=== PATIENT | female | born 1970 | race African-American/Black ===

== ENCOUNTER 2021-04-26 17:20 | Emergency (ER) | payer OTHER ==
[~2021-04-26] VITALS: Ht 175.3 cm; Wt 130.0 kg
[2021-04-26] MEDS ORDERED: SODIUM CHLORIDE 0.9% 1,000 ML IV ONE (18:00)
[2021-04-26 18:13] LABS: BASOPHILS % 0.7 % (0.0-2.0); EOSINOPHILS % 0.8 % (0.0-5.0); HEMATOCRIT. 40.6 % (36.0-48.0); HEMOGLOBIN. 13.9 g/dL (12.0-16.0); LYMPHOCYTES % 32.9 % (20.0-50.0); MEAN CORPUSCULAR HEMOGLOBIN 31.1 pg (28.0-32.0); MEAN CORPUSCULAR VOLUME 90.9 fL (81.0-99.0); MEAN PLATELET VOLUME 7.7 fl (7.4-10.4); MONOCYTES % 8.1 % (2.0-8.0); NEUTROPHILS % 57.5 % (40.0-76.0); PLATELET 290 x1000/uL (130-400); RED BLOOD CELL COUNT 4.47 mill/uL (4.2-5.4); RED CELL DISTRIBUTION WIDTH 14.9 % (11.6-14.6)
[2021-04-26 18:20] LABS: CHLORIDE 102 mEq/L (98-107)
[2021-04-26 18:48] LABS: *AMPHETAMINES SCREEN URINE NEGATIVE (NEGATIVE); *BARBITURATES SCREEN URINE NEGATIVE (NEGATIVE); CANNABINOID URINE SCREEN NEGATIVE (NEGATIVE); OPIATES URINE SCREEN NEGATIVE (NEGATIVE); PHENCYCLIDINE URINE SCREEN NEGATIVE (NEGATIVE)
[2021-04-26 18:49] LABS: *BENZODIAZEPINES SCREEN URINE NEGATIVE (NEGATIVE); *COCAINE SCREEN URINE NEGATIVE (NEGATIVE); METHADONE URINE SCREEN NEGATIVE (NEGATIVE)
[2021-04-26] MEDS ORDERED: POTASSIUM CHLORIDE 20MEQ TABLET SR PO NR (19:00)
[2021-04-26] MEDS ORDERED: POTA20TA82 MT (21:25)
[2021-04-26 21:29] VITALS: BP 134/82
== END 2021-04-26 21:34 | disposition home or self-care (01) ==
LOC: ER 17:20
DX: R00.2 Palpitations (principal); E87.6 Hypokalemia; I10 Essential (primary) hypertension; E78.00 Pure hypercholesterolemia, unspecified; M19.90 Unspecified osteoarthritis, unspecified site; Z85.41 Personal history of malignant neoplasm of cervix uteri; Z86.718 Personal history of other venous thrombosis and embolism; Z98.890 Other specified postprocedural states; Z79.01 Long term (current) use of anticoagulants
CPT/HCPCS: 36415; 71045; 80053; 80305; 83880; 84484; 85025; 93005; 99285; J7030

== ENCOUNTER 2022-12-12 09:44 | Emergency (ER) | payer OTHER ==
[~2022-12-12] VITALS: Ht 175.3 cm; Wt 125.4 kg
[~2022-12-12 09:44] MED LIST: POTA-204 MT
[2022-12-12 10:00] VITALS: BP 124/82
[2022-12-12 10:35] LABS: BASOPHILS % 0.4 % (0.0-2.0); EOSINOPHILS % 0.3 % (0.0-5.0); HEMATOCRIT. 39.5 % (36.0-48.0); HEMOGLOBIN. 13.8 g/dL (12.0-16.0); LYMPHOCYTES % 27.3 % (20.0-50.0); MEAN CORPUSCULAR HEMOGLOBIN 31.8 pg (28.0-32.0); MEAN CORPUSCULAR VOLUME 90.8 fL (81.0-99.0); MONOCYTES % 10.8 % (2.0-8.0); NEUTROPHILS % 61.2 % (40.0-76.0); PLATELET 274 x1000/uL (130-400); RED BLOOD CELL COUNT 4.36 mill/uL (4.2-5.4); RED CELL DISTRIBUTION WIDTH 14.4 % (11.6-14.6)
[2022-12-12 10:41] LABS: CHLORIDE 101 mEq/L (98-107)
[2022-12-12] MEDS ORDERED: ACETAMINOPHEN 325MG TABLET PO ONE (12:30)
[2022-12-12] MEDS ORDERED: ONDANSETRON 4MG ODT PO ONE (12:30)
[2022-12-12] MEDS ORDERED: SUMATRIPTAN SUCCINATE 6MG/0.5ML VIAL SUBCUT ONE (12:30)
[2022-12-12] MEDS ORDERED: CEFU500T41 MT (12:42)
[2022-12-12] MEDS ORDERED: ACET-2708 MT (12:42)
[2022-12-12] MEDS ORDERED: DEXT30SU17 MT (12:42)
== END 2022-12-12 12:52 | disposition home or self-care (01) ==
LOC: ER 09:44
DX: R51.9 Headache, unspecified (principal); J02.9 Acute pharyngitis, unspecified; I10 Essential (primary) hypertension; E78.00 Pure hypercholesterolemia, unspecified; Z98.890 Other specified postprocedural states
CPT/HCPCS: 36415; 80053; 84484; 85025; 93005; 99284